=== PATIENT | female | born 1990 | race African-American/Black ===

== ENCOUNTER 2020-06-10 12:32 | Inpatient (IN) ==
[2020-06-10] MEDS ORDERED: ONDANSETRON 4 MG/2 ML VIAL IV PRN (13:24)
[2020-06-10] MEDS ORDERED: BUTORPHANOL 2 MG/ML VIAL IV PRN (13:24)
[2020-06-10] MEDS ORDERED: OXYTOCIN/LR 20 UNIT/1,000 ML BAG IV SCH (13:30)
[2020-06-10] MEDS ORDERED: FAMOTIDINE 20 MG/2 ML VIAL IV SCH (13:30)
[2020-06-10] MEDS: LACTATED RINGERS 1,000 ML IV SCH ×2 (13:35→19:31)
[2020-06-10 13:46] LABS: Basophils % 0.2 % (0.0-0.8); Eosinophils % 0.3 % (0.00-10.9); Hematocrit 32.6 VOL% (35.7-47.0); Hemoglobin 11.4 GM/DL (12.0-16.0); Immature Granulocytes % 0.8 %; Immature Granulocytes Absolute 0.08 #; Lymphocytes # 2.2 10*3/uL (1.4-4.0); Lymphocytes % 22.2 % (21.3-54.2); Mean Corpuscular Volume 94.8 FL (87-102); Mean Platelet Volume 9.6 FL (9.6-12.0); Monocytes % 9.1 % (1.7-12.7); Neutrophils % 67.4 % (38.7-73.9); Platelet Count 198 T/CUMM (130-400); Red Blood Count 3.44 MC/CUMM (3.8-5.5); Red Cell Distribution Width 13.8 % (9.3-17.3); White Blood Count 9.9 T/CUMM (4-12)
[2020-06-10 14:37] VITALS: BP 122/76
[2020-06-10] MEDS ORDERED: ePHEDrine 50 MG/ML VIAL IV PRN (21:59)
[2020-06-10] MEDS ORDERED: NALOXONE 0.4 MG/ML VIAL IV PRN (21:59)
[2020-06-10] MEDS ORDERED: FAMOTIDINE 20 MG/2 ML VIAL IV ONE (21:59)
[2020-06-10] MEDS ORDERED: CITRIC ACID/SODIUM CITRATE 30 ML UDCUP PO ONE (21:59)
[2020-06-10] MEDS ORDERED: fentaNYL 2 MCG/ROPIV 0.2% EPID 100 ML EPIDURAL SCH (22:00)
[2020-06-11] MEDS: LACTATED RINGERS 1,000 ML IV SCH (00:10)
[2020-06-11 00:51] LABS: Apearance,Urine Slightly Hazy (Clear); Bacteria,Urine Occasional /HPF (Few); Bilirubin,Urine Negative (Negative); Blood, Urine Small mg/dL (Negative); Glucose,Urine (UA) Negative (Negative); Ketones,Urine 80 mg/dL (Negative); Mucus,Urine Many /LPF (Occasional); Nitrite,Urine Negative (Negative); Protein,Urine 30 MG/DL; RBC,Urine 2 /HPF (0-4); Squamous Epithelial Cell,Urine Occasional /HPF (0-10); Urine Color Yellow (Yellow); Urine Specific Gravity 1.014 (1.001-1.035); WBC,Urine 2 /HPF (0-6)
[2020-06-11 01:37] LABS: Barbiturates Screen,Urine Negative (Negative); Benzodiazepines Screen,Urine Negative (Negative); Cannabinoid Screen,Urine Positive (Negative); Opiate Screen,Urine Negative (Negative); Phencyclidine Screen,Urine Negative (Negative)
[2020-06-11] MEDS ORDERED: OXYTOCIN/LR 20 UNIT/1,000 ML BAG IV ONE ×2 (03:25→08:24)
[2020-06-11 03:38] LABS: Cord Arterial Blood HCO3 21.3 MMOL/L
[2020-06-11 03:41] LABS: Cord Venous Blood HCO3 24.1 MMOL/L; Cord Venous Blood PCO2 44.5 MMHG; Cord Venous Blood PO2 28.3
[2020-06-11 06:34] LABS: Basophils % 0.1 % (0.0-0.8); Hematocrit 30.6 VOL% (35.7-47.0); Hemoglobin 10.7 GM/DL (12.0-16.0); Immature Granulocytes % 0.7 %; Immature Granulocytes Absolute 0.09 #; Lymphocytes # 1.3 10*3/uL (1.4-4.0); Lymphocytes % 9.7 % (21.3-54.2); Mean Platelet Volume 9.2 FL (9.6-12.0); Neutrophils % 83.5 % (38.7-73.9); Platelet Count 164 T/CUMM (130-400); Red Blood Count 3.22 MC/CUMM (3.8-5.5); Red Cell Distribution Width 13.9 % (9.3-17.3); White Blood Count 13.7 T/CUMM (4-12)
[2020-06-11] MEDS ORDERED: IBUPROFEN 800 MG TABLET PO PRN (08:24)
[2020-06-11] MEDS ORDERED: ACETAMINOPHEN 325 MG TABLET PO PRN (08:24)
[2020-06-11] MEDS ORDERED: oxyCODONE/ACETAMINOPHEN 5-325 MG TABLET PO PRN ×2 (08:24)
[2020-06-11] MEDS ORDERED: WITCH HAZEL PADS 100/JAR TOP PRN (08:24)
[2020-06-11] MEDS ORDERED: BISACODYL 10 MG SUPP RECTAL PRN (08:24)
[2020-06-11] MEDS ORDERED: LANOLIN 50% CREAM 0.3 OZ TUBE TOP PRN (08:24)
[2020-06-11] MEDS ORDERED: BENZOCAINE 20%/MENTHOL 0.5% SPRAY 56 GM CAN TOP PRN (08:24)
[2020-06-11] MEDS ORDERED: HYDROCORTISONE 2.5% RECTAL CREAM 30 GM TUBE TOP PRN (08:24)
[2020-06-11] MEDS ORDERED: ONDANSETRON 4 MG/2 ML VIAL IV PRN (08:24)
[2020-06-11] MEDS: IBUPROFEN 800 MG TABLET PO PRN ×2 (12:59→21:54)
[2020-06-12] MEDS: DOCUSATE SODIUM 100 MG CAPSULE PO SCH ×3 (02:52→09:02)
[2020-06-12 04:49] LABS: Basophils % 0.2 % (0.0-0.8); Eosinophils % 0.3 % (0.00-10.9); Hematocrit 26.9 VOL% (35.7-47.0); Hemoglobin 9.4 GM/DL (12.0-16.0); Immature Granulocytes % 0.5 %; Immature Granulocytes Absolute 0.06 #; Lymphocytes # 2.8 10*3/uL (1.4-4.0); Lymphocytes % 23.6 % (21.3-54.2); Mean Corpuscular HGB Conc 34.9 GM/DL (32-36); Mean Corpuscular Volume 94.7 FL (87-102); Mean Platelet Volume 9.2 FL (9.6-12.0); Monocytes % 7.7 % (1.7-12.7); Neutrophils % 67.7 % (38.7-73.9); Platelet Count 171 T/CUMM (130-400); Red Blood Count 2.84 MC/CUMM (3.8-5.5); Red Cell Distribution Width 13.8 % (9.3-17.3); White Blood Count 11.7 T/CUMM (4-12)
[2020-06-12] MEDS ORDERED: DIPH/TET/ACEL PERT BOOSTER VACCINE 0.5 ML VIAL IM ONE (08:00)
== END 2020-06-12 17:15 | disposition home or self-care (01) | DRG 560 ==
LOC: N.LDOUT 12:32 → N.LD 12:37
PROVIDERS: ADMIT Obstetrics & Gynecology; ATTEND Obstetrics & Gynecology